=== PATIENT | male | born 1985 | race Caucasian/White ===

== ENCOUNTER 2017-05-15 12:21 | Emergency (ER) | payer BC ==
[2017-05-15 12:36] VITALS: BP 133/81
--- NOTE | 2017-05-15 12:40 | UC ---
Skin Complaint HPI - HPI Summary HPI Summary: 31 y/o female presents to the urgent care c/o his right cheek is red and swollen for the past 2 days. Pt states he had a pimple or ingrown hair about 3 days ago and now has become infected. He thinks it became worse when he was shaving. today it is getting larger and more red. Mild tenderness at touch. Pt denies fever, SOB, chest pain, N/V/D. - History of Current Complaint Chief Complaint: UCSkin Time Seen by Provider: 05/15/17 12:37 Stated Complaint: SKIN COMPLAINT Hx Obtained From: Patient Onset/Duration: Gradual Onset, Lasting Days, Still Present Skin Exposure Onset/Duration: Days Ago Timing: Constant Onset Severity: Mild Current Severity: Mild Pain Intensity: 2 Pain Scale Used: 0-10 Numeric Location: Discrete - RT cheek Character: Swelling, Redness, Painful Aggravating: Touch Alleviating: Nothing Associated Signs & Symptoms: Positive: Tenderness - mild. Negative: Nausea, Vomiting, Fever, Chills, Red Streaks Related History: Other: - shaving - Allergy/Home Medications Allergies/Adverse Reactions: Allergies Allergy/AdvReac Type Severity Reaction Status Date / Time No Known Allergies Allergy Verified 05/15/17 12:36 Review of Systems Constitutional: Negative Skin: Rash - red and swollen on RT cheek Eyes: Negative ENT: Negative Respiratory: Negative Cardiovascular: Negative Gastrointestinal: Negative Genitourinary: Negative Motor: Negative Neurovascular: Negative Musculoskeletal: Negative Neurological: Negative Psychological: Negative All Other Systems Reviewed And Are Negative: Yes PMH/Surg Hx/FS Hx/Imm Hx Previously Healthy: Yes - Surgical History Surgical History: Yes Surgery Procedure, Year, and Place: T&A - Family History Known Family History: Positive: Hypertension - Social History Occupation: Employed Full-time Lives: With Family Alcohol Use: Weekly Substance Use Type: None Smoking Status (MU): Never Smoked Tobacco Physical Exam Triage Information Reviewed: Yes Appearance: Well-Appearing, No Pain Distress, Well-Nourished Vital Signs: Initial Vital Signs Temp 98.2 F 05/15/17 12:33 Pulse 70 05/15/17 12:33 Resp 16 05/15/17 12:33 BP 133/81 05/15/17 12:33 Pulse Ox 99 05/15/17 12:33 Vital Signs Reviewed: Yes Eye Exam: Normal Eyes: Positive: Conjunctiva Clear ENT Exam: Normal ENT: Positive: Normal ENT inspection, Hearing grossly normal, Pharynx normal, TMs normal Dental Exam: Normal Neck exam: Normal Neck: Positive: Supple, Nontender, No Lymphadenopathy Respiratory Exam: Normal Respiratory: Positive: Chest non-tender, Lungs clear, Normal breath sounds Cardiovascular Exam: Normal Cardiovascular: Positive: RRR, No Murmur, Pulses Normal, Brisk Capillary Refill Abdominal Exam: Normal Abdomen Description: Positive: Nontender, No Organomegaly, Soft. Negative: CVA Tenderness (R), CVA Tenderness (L) Bowel Sounds: Positive: Present Musculoskeletal Exam: Normal Musculoskeletal: Positive: Strength Intact, ROM Intact, No Edema Neurological Exam: Normal Psychological Exam: Normal Skin: Positive: rashes - RT cheek with erythemaous path with indistict borders, with a 2 hair follicle with yellowish draineage, swollen, warm and tender to palpatpation. About 1cm x 1 cm in size Course/Dx - Course Course Of Treatment: 31 y/o female presents to the urgent care c/o his right cheek is red and swollen for the past 2 days. Pt states he had a pimple or ingrown hair about 3 days ago and now has become infected. He thinks it became worse when he was shaving. today it is getting larger and more red. Mild tenderness at touch. Pt denies fever, SOB, chest pain, N/V/D. Hx obtained. Pt with foliculitis. Pt Rx Keflex PO and Bactroban. Advised if not improvement of symptoms to return to the clinic or f/u with his PCP for further treatment. Pt understood and agreed - Differential Diagnoses - Skin Complaint Differential Diagnoses: Abscess, Cellulitis, Contact Dermatitis, Eczema, Impetigo, MRSA, Tick Born Illness, Other - folliculitis - Diagnoses Provider Diagnoses: 1- Bacterial Foliculitis Discharge - Discharge Plan Condition: Stable Disposition: HOME Prescriptions: Cephalexin CAP* [Keflex CAP*] 500 mg PO QID #28 cap Mupirocin 2% CREAM* [Bactroban 2% CREAM*] 1 applic TOPICAL TID #1 tube Patient Education Materials: Folliculitis (ED) Referrals: [facility] [place] [facility] [Outside] - If Needed Additional Instructions: 1-Please take full course of Antibiotic to avoid resistance. 2- If redness and swelling doubles in size after 48 hrs of taking antibiotic and fever develops please go to the ER immediately.
== END 2017-05-15 13:16 | disposition home or self-care (01) ==
LOC: UCCORT 12:21
DX: L73.8 Other specified follicular disorders (principal)
CPT/HCPCS: 99202; G0463

== ENCOUNTER 2017-06-26 19:30 | Emergency (ER) | payer BC ==
[2017-06-26 21:03] VITALS: BP 138/77
[2017-06-26] MEDS ORDERED: Tobramycin 0.3% OPHTH.OINT* 3.5 GM TUBE (OPTH OINTMENT) LEFT EYE ONE (21:16)
[2017-06-26] MEDS ORDERED: Amoxicillin/Clavulanate TAB* 875 MG PO ONE (21:16)
[2017-06-26] MEDS ORDERED: Tobramycin 0.3% OPHTH.SOL* 5 ML BOT (regular eye drops) LEFT EYE ONE (21:21)
[2017-06-26] MEDS ORDERED: Tobramycin 0.3% OPHTH.SOL* 5 ML BOT (regular eye drops) ONE (21:24)
--- NOTE | 2017-06-26 21:30 | UC ---
Eye Complaint HPI - HPI Summary HPI Summary: TWO WEEKS OF SINUS PRESSURE CONGESTION, TODAY DEVELOPED LEFT EYE REDNESS AND THICK DISCHARGE. NO PAIN WITH EYE MVMENT. - History of Current Complaint Chief Complaint: UCEye Stated Complaint: EYE IRRITATION Time Seen by Provider: 06/26/17 21:02 Hx Obtained From: Patient Onset/Duration: Sudden Onset Severity Initially: Moderate Severity Currently: Moderate - 0 Location of Injury: Conjunctiva Character: Dull Alleviating Factor(s): Nothing Associated Signs And Symptoms: Positive: Drainage (Purulent) - Risk Factors Penetrating Injury Risk Factor: Negative Globe Rupture Risk Factors: Negative Acute Glaucoma Risk Factors: Eye Inflammation - Allergies/Home Medications Allergies/Adverse Reactions: Allergies Allergy/AdvReac Type Severity Reaction Status Date / Time No Known Allergies Allergy Verified 06/26/17 21:03 PMH/Surg Hx/FS Hx/Imm Hx Previously Healthy: Yes - Surgical History Surgical History: Yes Surgery Procedure, Year, and Place: T&A - Family History Known Family History: Positive: Hypertension - Social History Occupation: Employed Full-time Lives: With Family Alcohol Use: Occasionally Substance Use Type: None Smoking Status (MU): Never Smoked Tobacco Review of Systems Constitutional: Negative Skin: Negative Eyes: Eye Redness ENT: Nasal Discharge, Sinus Congestion, Sinus Pain/Tenderness Respiratory: Negative Cardiovascular: Negative Gastrointestinal: Negative Genitourinary: Negative Motor: Negative Neurovascular: Negative Musculoskeletal: Negative Neurological: Negative Psychological: Negative Is Patient Immunocompromised?: No All Other Systems Reviewed And Are Negative: Yes Physical Exam Triage Information Reviewed: Yes Appearance: Well-Appearing, No Pain Distress, Well-Nourished Vital Signs: Initial Vital Signs Temp 97.6 F 06/26/17 21:01 Pulse 90 06/26/17 21:01 Resp 18 06/26/17 21:01 BP 138/77 06/26/17 21:01 Pulse Ox 100 06/26/17 21:01 Vital Signs Reviewed: Yes Eyes: Positive: Conjunctiva Inflamed, Discharge ENT: Positive: Pharyngeal erythema, Nasal congestion, TM dull Dental Exam: Normal Neck exam: Normal Neck: Positive: Supple, Nontender, No Lymphadenopathy Respiratory Exam: Normal Respiratory: Positive: Chest non-tender, Lungs clear, Normal breath sounds, No respiratory distress, No accessory muscle use Cardiovascular Exam: Normal Cardiovascular: Positive: RRR, No Murmur, Pulses Normal Abdominal Exam: Normal Musculoskeletal Exam: Normal Musculoskeletal: Positive: Strength Intact, ROM Intact Neurological Exam: Normal Psychological Exam: Normal Skin Exam: Normal Eye Complaint Course/Dx - Differential Dx/Diagnosis Differential Diagnosis/HQI/PQRI: Conjunctivitis Provider Diagnoses: LEFT CONJUNCTIVITIS; SINUSITIS Discharge - Discharge Plan Condition: Stable Disposition: HOME Prescriptions: Amoxicillin/Clavulanate TAB* [Augmentin TAB 875*] 875 mg PO BID #20 tab Patient Education Materials: Sinusitis (ED), Conjunctivitis (ED) Referrals: [facility] [place] [facility] [Outside] No Primary Care Phys,NOPCP [Primary Care Provider] - Mulugeta Faria MD [Medical Doctor] - If Needed
== END 2017-06-26 21:32 | disposition home or self-care (01) ==
LOC: UCEAST 19:30
DX: H10.32 Unspecified acute conjunctivitis, left eye (principal); J32.9 Chronic sinusitis, unspecified
CPT/HCPCS: 99212; A9270-GY; G0463

== ENCOUNTER 2018-04-26 12:45 | Emergency (ER) | payer BC ==
[2018-04-26 13:19] VITALS: BP 124/58
--- NOTE | 2018-04-26 13:36 | UC ---
Throat Pain/Nasal [place] HPI - HPI Summary HPI Summary: WHITE TONGUE X 1 DAY NOTED THIS MORNING , MILD SWELLING AND DISCOMFORT, NO RECENT ANTIBIOTIC USE, NO STEROID USE , NO HX OF IMMUNODEFICIENCY - History of Current Complaint Chief Complaint: UCGeneralIllness Stated Complaint: ORAL CONCERN Time Seen by Provider: 04/26/18 13:25 Hx Obtained From: Patient Onset/Duration: Gradual Onset, Lasting Days - 1, Still Present Severity: Moderate Pain Intensity: 0 Cough: None Associated Signs & Symptoms: Negative: Dysphagia, FB Sensation, Drooling, Wheezing, Hoarseness, Sinus Discomfort, Nasal Discharge, Fever, Vomiting, Rash - Allergies/Home Medications Allergies/Adverse Reactions: Allergies Allergy/AdvReac Type Severity Reaction Status Date / Time No Known Allergies Allergy Verified 04/26/18 13:15 PMH/Surg Hx/FS Hx/Imm Hx Previously Healthy: Yes - Surgical History Surgical History: Yes Surgery Procedure, Year, and Place: T&A - Family History Known Family History: Positive: Hypertension - Social History Alcohol Use: Occasionally Substance Use Type: None Smoking Status (MU): Never Smoked Tobacco Review of Systems Constitutional: Negative Skin: Negative Eyes: Negative ENT: Negative Respiratory: Negative Is Patient Immunocompromised?: No All Other Systems Reviewed And Are Negative: Yes Physical Exam Triage Information Reviewed: Yes Appearance: Well-Appearing, No Pain Distress, Well-Nourished Vital Signs: Initial Vital Signs Temp 99.1 F 04/26/18 13:15 Pulse 75 04/26/18 13:15 Resp 14 04/26/18 13:15 BP 124/58 04/26/18 13:15 Pulse Ox 100 04/26/18 13:15 Vital Signs Reviewed: Yes Eyes: Positive: Conjunctiva Clear ENT: Positive: Normal ENT inspection, Hearing grossly normal, Pharynx normal, Other - ORAL THRUSH. Negative: Pharyngeal erythema, Nasal congestion, Nasal drainage, TMs normal Neck exam: Normal Respiratory Exam: Normal Respiratory: Positive: Chest non-tender, Lungs clear, Normal breath sounds Cardiovascular: Positive: RRR, No Murmur, Pulses Normal Neurological Exam: Normal Skin Exam: Normal Throat Pain/Nasal Course/Dx - Differential Dx/Diagnosis Provider Diagnoses: ORAL THRUSH Discharge - Sign-Out/Discharge Documenting (check all that apply): Patient Departure - Discharge Plan Condition: Stable Disposition: HOME Prescriptions: Nystatin SUSPENSION ORAL SYR* 5 ml PO QID #200 ml Patient Education Materials: Oral Candidiasis (ED) Referrals: Iram Reynaga MD [Primary Care Provider] - 7 Days - Billing Disposition and Condition Condition: STABLE Disposition: Home
== END 2018-04-26 13:42 | disposition home or self-care (01) ==
LOC: UCCORT 12:45
DX: B37.0 Candidal stomatitis (principal)
CPT/HCPCS: 99212; G0463

== ENCOUNTER 2018-05-05 11:54 | Emergency (ER) | payer BC ==
[2018-05-05 12:18] VITALS: BP 129/96
--- NOTE | 2018-05-05 12:46 | UC ---
Throat Pain/Nasal [place] HPI - HPI Summary HPI Summary: Pt presents with c/o throat pain that began prior to visit on 04/26/18. Pt was diagnosed with oral thrush and was given nystatin swish and swallow. Pt states mouth pain and sores have healed but continues to have throat discomfort. - History of Current Complaint Chief Complaint: UCGeneralIllness Stated Complaint: RECHECK ORAL THRUSH Time Seen by Provider: 05/05/18 12:27 Hx Obtained From: Patient Onset/Duration: Sudden Onset, Lasting Days, Still Present Severity: Mild Pain Intensity: 0 Pain Scale Used: 0-10 Numeric Cough: None Associated Signs & Symptoms: Positive: Dysphagia - Epiglottits Risk Factors Epiglottis Risk Factors: Negative - Allergies/Home Medications Allergies/Adverse Reactions: Allergies Allergy/AdvReac Type Severity Reaction Status Date / Time No Known Allergies Allergy Verified 05/05/18 12:14 PMH/Surg Hx/FS Hx/Imm Hx Previously Healthy: Yes - Surgical History Surgical History: Yes Surgery Procedure, Year, and Place: T&A - Family History Known Family History: Positive: Hypertension - Social History Occupation: Employed Full-time Lives: With Family Alcohol Use: 1/weekly Substance Use Type: None Smoking Status (MU): Never Smoked Tobacco Have You Smoked in the Last Year: No Review of Systems Constitutional: Negative Skin: Negative Eyes: Negative ENT: Sore Throat Respiratory: Negative Cardiovascular: Negative Gastrointestinal: Negative Genitourinary: Negative Motor: Negative Neurovascular: Negative Musculoskeletal: Negative Neurological: Negative Psychological: Negative Is Patient Immunocompromised?: No All Other Systems Reviewed And Are Negative: Yes Physical Exam Triage Information Reviewed: Yes Appearance: Well-Appearing Vital Signs: Initial Vital Signs Temp 98.6 F 05/05/18 12:15 Pulse 76 05/05/18 12:15 Resp 16 05/05/18 12:15 BP 129/96 05/05/18 12:15 Pulse Ox 100 05/05/18 12:15 Vital Signs Reviewed: Yes Eye Exam: Normal ENT: Positive: Normal ENT inspection Dental Exam: Normal Neck exam: Normal Respiratory Exam: Normal Cardiovascular Exam: Normal Musculoskeletal Exam: Normal Neurological Exam: Normal Psychological Exam: Normal Skin Exam: Normal Throat Pain/Nasal Course/Dx - Course Course Of Treatment: I discussed with the pt the need to follow up with PCP and possibly ENT. Pt verbalized understanding and agreed to plan of care. - Differential Dx/Diagnosis Differential Diagnosis/HQI/PQRI: Laryngitis, Pharyngitis Provider Diagnoses: sore throat Discharge - Sign-Out/Discharge Documenting (check all that apply): Patient Departure All imaging exams completed and their final reports reviewed: No Studies - Discharge Plan Condition: Stable Disposition: HOME Prescriptions: Fluconazole 100 MG TAB* [Diflucan 100 MG TAB*] 100 mg PO DAILY #5 tab Patient Education Materials: Dysphagia (ED) Referrals: Alvarez Murphy MD [Medical Doctor] - If Needed Iram Reynaga MD [Primary Care Provider] - If Needed - Billing Disposition and Condition Condition: STABLE Disposition: Home
== END 2018-05-05 12:43 | disposition home or self-care (01) ==
LOC: UCCORT 11:54
DX: J02.9 Acute pharyngitis, unspecified (principal)
CPT/HCPCS: 99212; G0463

== ENCOUNTER 2019-01-15 16:30 | Emergency (ER) | payer BC ==
[2019-01-15 17:00] VITALS: BP 137/84
--- NOTE | 2019-01-15 17:15 | UC ---
Skin Complaint HPI - HPI Summary HPI Summary: Pulled a tick off his scrotum this afternoon. He thinks that it was just attached today. Did not seem to be engorged. - History of Current Complaint Chief Complaint: UCSkin Time Seen by Provider: 01/15/19 16:41 Stated Complaint: TICK BITE Hx Obtained From: Patient Onset/Duration: Sudden Onset, Lasting Hours - 2 Skin Exposure Onset/Duration: Hours Ago - 2 Onset Severity: Mild Current Severity: None Pain Intensity: 0 Location: Discrete - scrotum Aggravating Factor(s): Nothing Alleviating Factor(s): Nothing Associated Signs & Symptoms: Positive: Negative Related History: Insect Bite/Sting - tick bite - Allergy/Home Medications Allergies/Adverse Reactions: Allergies Allergy/AdvReac Type Severity Reaction Status Date / Time No Known Allergies Allergy Verified 01/15/19 17:00 Home Medications: Home Medications NK [No Home Medications Reported] 01/15/19 [History Confirmed 01/15/19] PMH/Surg Hx/FS Hx/Imm Hx Previously Healthy: Yes - Surgical History Surgical History: Yes Surgery Procedure, Year, and Place: T&A - Family History Known Family History: Positive: Hypertension, Diabetes - Social History Occupation: Employed Full-time Lives: With Family Alcohol Use: Occasionally Substance Use Type: None Smoking Status (MU): Never Smoked Tobacco Have You Smoked in the Last Year: No Review of Systems All Other Systems Reviewed And Are Negative: Yes Is Patient Immunocompromised?: No Physical Exam Triage Information Reviewed: Yes Appearance: Well-Appearing, No Pain Distress, Well-Nourished Vital Signs: Initial Vital Signs Temp 98.1 F 01/15/19 16:56 Pulse 94 01/15/19 16:56 Resp 20 01/15/19 16:56 BP 137/84 01/15/19 16:56 Pulse Ox 100 01/15/19 16:56 Vital Signs Reviewed: Yes Eyes: Positive: Conjunctiva Clear Neck exam: Normal Respiratory Exam: Normal Cardiovascular Exam: Normal Male Genital Exam: Positive: Normal Genitalia Musculoskeletal Exam: Normal Neurological Exam: Normal Psychological Exam: Normal Skin Exam: Normal - ? bite wound on the scrotum. Not obvious Course/Dx - Differential Diagnoses - Skin Complaint Differential Diagnoses: Abscess, Cellulitis, Impetigo, Tick Born Illness - Diagnoses Provider Diagnosis: Tick bite of scrotum Discharge - Sign-Out/Discharge Documenting (check all that apply): Patient Departure All imaging exams completed and their final reports reviewed: No Studies - Discharge Plan Condition: Stable Disposition: HOME Patient Education Materials: Tick Bite (ED) Referrals: Iram Reynaga MD [Primary Care Provider] - Additional Instructions: Use the tick twister for embedded ticks - Billing Disposition and Condition Condition: STABLE Disposition: Home
== END 2019-01-15 17:22 | disposition home or self-care (01) ==
LOC: UCCORT 16:30
DX: S30.863A Insect bite (nonvenomous) of scrotum and testes, initial encounter (principal); W57.XXXA Bitten or stung by nonvenomous insect and other nonvenomous arthropods, initial encounter; Y92.9 Unspecified place or not applicable
CPT/HCPCS: 99211; G0463